=== PATIENT | male | born 1995 | race Caucasian/White ===

== ENCOUNTER 2018-01-16 02:25 | Emergency (ER) | payer OTHER ==
--- NOTE | 2018-01-16 02:31 | ED ---
Overdose HPI - General Source: patient, family (mother), EMS, RN notes reviewed Mode of arrival: EMS Limitations: no limitations <Lenore Roman - Last Filed: 01/16/18 03:28> <Juaquin Singh - Last Filed: 01/16/18 04:21> - General Chief Complaint: Anxiety Stated Complaint: Paranoia; LSD Time Seen by Provider: 01/16/18 02:29 - History of Present Illness Initial Comments: This is a 22-year-old male who presents to the emergency department with chief complaint of paranoia and drug intoxication. Patient reports being at a club called [employer] in [place] this evening. He returned home at around 10 PM. Mother states that at AM in the morning she was awoken by patient's girlfriend who stated that he was acting abnormally. Patient states that while at the nightclub he smoked marijuana and took LSD. He states the LSD "was in the water." He states that he has the drug at home in an aluminum foil packet and that when he took it earlier he diluted it with water. Patient states that he feels paranoid and like he is dying. He denies any other illicit drug use. He does state that he was drinking alcohol this evening. EMS reports that patient has been emotional. Denies fevers or chills, chest pain, abdominal pain. He does state he had an episode of vomiting this evening and did feel short of breath. (Lenore Roman) - Related Data Home Medications Medication Instructions Recorded Confirmed No Known Home Medications 01/16/18 01/16/18 Allergies Allergy/AdvReac Type Severity Reaction Status Date / Time Penicillins Allergy Anaphylaxis Verified 01/16/18 02:42 Review of Systems ROS Other: All systems not noted in ROS Statement are negative. <Lenore Roman - Last Filed: 01/16/18 03:28> ROS Other: All systems not noted in ROS Statement are negative. <Juaquin Singh - Last Filed: 01/16/18 04:21> ROS Statement: Those systems with pertinent positive or pertinent negative responses have been documented in the HPI. General Exam <Lenore Roman - Last Filed: 01/16/18 03:28> <Juaquin Singh - Last Filed: 01/16/18 04:21> - General Exam Comments Initial Comments: General: Awake and alert, well-developed; in no apparent distress. Mother is at bedside. HEENT: Head atraumatic, normocephalic. Pupils are dilated, equal, round and reactive to light. Extraocular movements intact. Oropharynx moist without erythema or exudate. Neck: Supple. Normal ROM. No tenderness. Cardiovascular: Regular rate and rhythm. No murmurs, rubs or gallops. Chest symmetrical. Respiratory: Lungs clear to auscultation bilaterally. No wheezes, rales or rhonchi. Normal respiratory effort with no use of accessory muscles. Musculoskeletal: Normal ROM, no tenderness bilateral upper and lower extremities. Skin: [place], warm and dry without rashes or lesions. Neurological: Alert and oriented x3. CN II-XII grossly intact. Speech is fluent. No focal neuro deficits. Psychiatric: Alternating between calm and tearful. Paranoid but cooperative. (Lenore Roman) Vital Signs 01/16/18 01/16/18 02:31 04:17 Temperature 98.5 F 98.4 F Pulse Rate 104 H 98 Respiratory 20 18 Rate Blood Pressure 152/82 154/84 O2 Sat by Pulse 99 98 Oximetry Medical Decision Making <Lenore Roman - Last Filed: 01/16/18 03:28> - Lab Data Result diagrams: 01/16/18 03:40 01/16/18 03:40 <Juaquin Singh - Last Filed: 01/16/18 04:21> - Medical Decision Making This is a 22-year-old male who presents to the emergency department with chief complaint of paranoia and drug intoxication. Patient reports taking LSD earlier this evening. EMS was contacted as patient was acting abnormally. Patient states he feels paranoid and emotional. While in the emergency department, he alternates between tearful and calm. No agitation or aggression. He has been cooperative. BAT is negative. (Lenore Roman) - Lab Data Lab Results 01/16/18 01/16/18 01/16/18 Range/Units 03:05 03:40 03:40 WBC 14.7 H (3.8-10.6) k/uL RBC 5.08 (4.30-5.90) m/uL Hgb 15.1 (13.0-17.5) gm/dL Hct 45.0 (39.0-53.0) % MCV 88.6 (80.0-100.0) fL MCH 29.7 (25.0-35.0) pg MCHC 33.5 (31.0-37.0) g/dL RDW 12.9 (11.5-15.5) % Plt Count 320 (150-450) k/uL Neutrophils % 91 % Lymphocytes % 5 % Monocytes % 3 % Eosinophils % 0 % Basophils % 0 % Neutrophils # 13.3 H (1.3-7.7) k/uL Lymphocytes # 0.8 L (1.0-4.8) k/uL Monocytes # 0.4 (0-1.0) k/uL Eosinophils # 0.0 (0-0.7) k/uL Basophils # 0.0 (0-0.2) k/uL Sodium 140 (137-145) mmol/L Potassium 4.2 (3.5-5.1) mmol/L Chloride 104 (98-107) mmol/L Carbon Dioxide 23 (22-30) mmol/L Anion Gap 13 mmol/L BUN 12 (9-20) mg/dL Creatinine 0.80 (0.66-1.25) mg/dL Est GFR (CKD-EPI)AfAm >90 (>60 ml/min/1.73 sqM) Est GFR (CKD-EPI)NonAf >90 (>60 ml/min/1.73 sqM) Glucose 126 H (74-99) mg/dL Calcium 9.8 (8.4-10.2) mg/dL Phosphorus 2.5 (2.5-4.5) mg/dL Magnesium 1.9 (1.6-2.3) mg/dL Total Bilirubin 0.4 (0.2-1.3) mg/dL AST 42 (17-59) U/L ALT 69 (21-72) U/L Alkaline Phosphatase 78 (38-126) U/L Total Protein 8.7 H (6.3-8.2) g/dL Albumin 5.0 (3.5-5.0) g/dL Urine Opiates Screen Not Detected (NotDetected) Ur Oxycodone Screen Not Detected (NotDetected) Urine Methadone Screen Not Detected (NotDetected) Ur Propoxyphene Screen Not Detected (NotDetected) Ur Barbiturates Screen Not Detected (NotDetected) U Tricyclic Antidepress Not Detected (NotDetected) Ur Phencyclidine Scrn Not Detected (NotDetected) Ur Amphetamines Screen Not Detected (NotDetected) U Methamphetamines Scrn Not Detected (NotDetected) U Benzodiazepines Scrn Not Detected (NotDetected) Urine Cocaine Screen Not Detected (NotDetected) U Marijuana (THC) Screen Detected H (NotDetected) Disposition <Lenore Roman M - Last Filed: 01/16/18 03:28> Is patient prescribed a controlled substance at d/c from ED?: No <Juaquin Singh - Last Filed: 01/16/18 04:21> Clinical Impression: Drug ingestion Disposition: HOME SELF-CARE Condition: Good Instructions: Polysubstance Abuse (ED) Referrals: None,Stated [Primary Care Provider] - 1-2 days
[2018-01-16] MEDS ORDERED: SODIUM CHLORIDE 0.9% 1,000 ML IV STA (03:22)
[2018-01-16 03:38] LABS: Amphetamine Screen,Urine Not Detected (NotDetected); Barbiturate Screen,Urine Not Detected (NotDetected); Benzodiazepines Screen,Urine Not Detected (NotDetected); Cocaine Screen,Urine Not Detected (NotDetected); Methadone Screen, Urine Not Detected (NotDetected); Opiate Screen,Urine Not Detected (NotDetected); Oxycodone Screen, Urine Not Detected (NotDetected); Phencyclidine Screen,Urine Not Detected (NotDetected); Tricyclic Antidepressant,Urine Not Detected (NotDetected); Urn Cannabinoid Scrn Detected (NotDetected)
[2018-01-16 03:50] LABS: Basophils % (A) 0 %; Eosinophils % (A) 0 %; HGB 15.1 gm/dL (13.0-17.5); Lymphocytes # (A) 0.8 k/uL (1.0-4.8); Lymphocytes % (A) 5 %; MCH 29.7 pg (25.0-35.0); MCHC 33.5 g/dL (31.0-37.0); MCV 88.6 fL (80.0-100.0); Mean Platelet Volume 6.1; Monocytes # (A) 0.4 k/uL (0-1.0); Monocytes % (A) 3 %; Neutrophils # (A) 13.3 k/uL (1.3-7.7); Neutrophils % (A) 91 %; Platelet Count 320 k/uL (150-450); RBC 5.08 m/uL (4.30-5.90); RDW 12.9 % (11.5-15.5); WBC 14.7 k/uL (3.8-10.6)
[2018-01-16 04:07] LABS: ALT 69 U/L (21-72); AST 42 U/L (17-59); Alkaline Phosphatase 78 U/L (38-126); Anion Gap 13 mmol/L; Blood Urea Nitrogen 12 mg/dL (9-20); Calcium 9.8 mg/dL (8.4-10.2); Carbon Dioxide 23 mmol/L (22-30); Chloride 104 mmol/L (98-107); Glucose 126 mg/dL (74-99); Magnesium 1.9 mg/dL (1.6-2.3); Phosphorus 2.5 mg/dL (2.5-4.5); Potassium 4.2 mmol/L (3.5-5.1); Sodium 140 mmol/L (137-145); Total Bilirubin 0.4 mg/dL (0.2-1.3); Total Protein 8.7 g/dL (6.3-8.2)
[2018-01-16 04:18] VITALS: BP 154/84; PULSE 98; RESP 18; TEMP 98.4
== END 2018-01-16 04:37 | disposition home or self-care (01) ==
LOC: EC 02:25
DX: T40.8X1A Poisoning by lysergide [LSD], accidental (unintentional), initial encounter (principal); Z88.0 Allergy status to penicillin
CPT/HCPCS: 36415; 80053; 80306; 82075; 83735; 84100; 85025; 96360; 99284

== ENCOUNTER 2019-10-22 14:34 | Emergency (ER) | payer OTHER ==
[2019-10-22 14:44] VITALS: BP 135/91; PULSE 108; RESP 20; TEMP 98
[2019-10-22] MEDS ORDERED: KETOROLAC 60 MG/2 ML VIAL IM STA (15:08)
[2019-10-22] MEDS ORDERED: traMADol 50 MG STARTER PACK 3 TAB BTL PO STA (15:09)
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
== END 2019-10-22 15:19 | disposition home or self-care (01) ==
LOC: EC 14:34
DX: S13.4XXD Sprain of ligaments of cervical spine, subsequent encounter (principal); Z88.0 Allergy status to penicillin
CPT/HCPCS: 99283; 96372; J1885